=== PATIENT | male | born 1995 | race Caucasian/White ===

== ENCOUNTER 2018-08-05 23:47 | Emergency (ER) | payer SELFPAY, OTHER | END 2018-08-06 04:50 | disposition left against medical advice (07) | LOC: FTE 23:47 | DX: Z53.21 Procedure and treatment not carried out due to patient leaving prior to being seen by health care provider (principal) ==

== ENCOUNTER 2019-01-17 23:05 | Emergency (ER) | payer OTHER ==
[2019-01-18] MEDS: HYDROCODONE/APAP (10/325) TAB PO (03:58)
== END 2019-01-18 05:01 | disposition home or self-care (01) ==
LOC: FTE 23:05
DX: H92.01 Otalgia, right ear (principal); E11.9 Type 2 diabetes mellitus without complications; J45.909 Unspecified asthma, uncomplicated; Z79.84 Long term (current) use of oral hypoglycemic drugs
CPT/HCPCS: 99283; Z7610